=== PATIENT | male | born 1965 | race Two or more races ===

== ENCOUNTER → 2024-05-21 | Outpatient (CLI) | payer MEDICARE, MEDICAID, SELFPAY ==
[2024-05-21 13:37] LABS: Collection Type, Urine Clean Catch
[2024-05-21 13:56] LABS: Basophils % (Auto) 0 % (0-2.5); Eosinophils # (Auto) 0.3 Thou/mm3 (0.0-0.5); Eosinophils % (Auto) 3 % (0-10); Hematocrit 41.4 % (41.0-53.0); Hemoglobin 13.6 g/dL (13.5-16.0); Immature Granulocytes % (Auto) 0 % (0-0); Immature Granulocytes Auto 0.02 Thou/mm3 (0.00-0.00); Lymphocytes # (Auto) 2.1 Thou/mm3 (1.0-4.8); Lymphocytes % (Auto) 23 % (10-50); Mean Corpuscular HGB Conc 32.9 g/dl (31.0-37.0); Mean Corpuscular Hemoglobin 29.7 pg (25.0-35.0); Mean Corpuscular Volume 90 fL (80-100); Monocytes # (Auto) 0.8 Thou/mm3 (0.0-0.8); Monocytes % (Auto) 8 % (0-12); Neutrophils % (Auto) 65 % (37-80); Nucleated Red Blood Cell % 0 /100 WBC (0); Platelet Count 244 Thou/mm3 (140-440); RDW Standard Deviation 43.8 fL (35.1-43.9); Red Blood Count 4.58 Miln/mm3 (4.50-5.90); White Blood Count 9.2 Thou/mm3 (3.8-10.6)
[2024-05-21 14:08] LABS: Amorphous Crystals,Urine Present (Absent); Bacteria,Urine Rare; Bilirubin,Urine Negative (Negative); Blood,Urine 1+ (Negative); Glucose, Urine Negative (Negative); Ketones,Urine Negative (Negative); Leukocyte Esterase,Urine Positive (Negative); Nitrite,Urine Positive (Negative); PH,Urine 8.5 (5.0-7.0); Protein,Urine 2+ (Neg - Trace); RBC,Urine 59 /hpf (0-3); Specific Gravity,Urine 1.016 (1.001-1.035); Squamous Epithelial Cell,Urine 1 /hpf (0-5); Triple Phosphate Crystal,Urine 4+; Urobilinogen,Urine Negative mg/dL (0.0-1.0); WBC,Urine 5 /hpf (0-5)
[2024-05-21 14:35] LABS: Alanine Aminotransferase 34 U/L (10-49); Albumin, Serum 4.4 gm/dL (3.5-5.0); Albumin/Globulin Ratio 1.6 (1.2-2.2); Alkaline Phosphatase 123 U/L (46-116); Anion Gap 10 (7-16); Aspartate Amino Transferase 31 U/L (0-34); BUN/Creatinine Ratio 25 Ratio (12-20); Bilirubin,Total 0.6 mg/dL (0.3-1.2); Blood Urea Nitrogen 20 mg/dL (9-23); Calcium 8.8 mg/dL (8.3-10.6); Calcium (Corrected) 8.8 mg/dL (8.5-10.1); Carbon Dioxide 24.1 mMol/L (20.0-31.0); Chloride 107 mMol/L (98-107); Creatinine (Component) 0.8 mg/dL (0.6-1.3); Globulin 2.8 gm/dL (2.3-3.5); Glucose 77 mg/dL (74-106); Osmolality,Calculated 282 (275-295); Potassium 3.9 mMol/L (3.4-5.1); Sodium 141 mMol/L (136-145); Total Protein 7.2 gm/dL (5.7-8.2); eGFR > 60 See Note
[2024-05-21 14:59] LABS: Clarity,Urine Cloudy (Clear/Hazy); Color,Urine Lt Yellow (Lt Yel-Yel)
[2024-05-21 15:38] LABS: Cardiac Risk Estimate 4.4 RATIO (4.0-6.7); Cholesterol 163 mg/dL (132-200); HDL Cholesterol 37 mg/dL (40-60); LDL Cholesterol,Calculated 102 mg/dL (0-130); Triglycerides 120 mg/dL (30-150)
== END | disposition home or self-care (01) ==
LOC: COPL 13:02
PROVIDERS: PCP Internal Medicine; Referring Provider Internal Medicine; Visit Provider Internal Medicine
DX: I10 Essential (primary) hypertension (principal); E78.5 Hyperlipidemia, unspecified; N39.0 Urinary tract infection, site not specified
CPT/HCPCS: 36415; 80053; 80061; 81001; 85025

== ENCOUNTER 2024-07-03 17:43 | Emergency (ER) | payer MEDICARE, MEDICAID, SELFPAY ==
[2024-07-03 17:55] VITALS: PULSE 76; RESP 18; O2SAT 98
[2024-07-03 17:56] VITALS: BP 145/68; PULSE 83; RESP 18; TEMP 36.5; O2SAT 96; BMI 37.3
--- NOTE | 2024-07-03 18:14 | XR_ITS ---
Examination: CT abdomen with intravenous contrast CT pelvis with intravenous contrast 2-D coronal reconstructions 2-D sagittal reconstructions Date and time of exam:July 03, 2024 at 1946 hrs. Indications: Left lower abdominal pain beginning 2 days ago. CTDI: vol (mGy) 15 DLP: (mGycm) 1147 Technique: Multiple axial sections of the abdomen and pelvis have been obtained. 64 slice high-resolution scanner used. 3 mm axial sections have been obtained, post intravenous injection 60 cc [id number] 2-D sagittal, coronal reconstructions obtained. Low dose protocols were performed. One or more of the following dose reduction techniques were used; automated exposure control, adjustment of the mA and/or KV according to patient size, use of iterative reconstruction technique. Findings: Pneumobilia No pancreatic or adrenal mass Mild bilateral hydronephrosis Urinary diversion with ileostomy No bowel obstruction Liver normal size Thickening of urinary bladder wall Impression: Mild bilateral hydronephrosis with urinary diversion ileostomy Diffuse irregular bladder wall thickening, consider cystitis, urinary bladder mass
--- NOTE | 2024-07-03 18:16 | PD.EDABDPN ---
ED Abdominal Pain RME/HPI General Chief Complaint: Abdominal Pain Stated complaint: ABD PAIN Time seen by provider: 07/03/24 17:55 Arrival date/time: 07/03/24 17:43 RME / HPI RME / HPI narrative: 58-year-old male patient came in for evaluation regarding left lateral abdominal pain. Is been ongoing for the last few days thinks he had a hernia there causing him the pain. Patient is paraplegic from T3 down. He had colostomy and urostomy bag. Patient denies any vomiting denies any fever denies any other complaints. Related Data Home Medications ?Medication ?Instructions ?Recorded ?Confirmed cyclobenzaprine 5 mg tablet 5 mg PO QHS 03/12/22 01/02/24 nitrofurantoin 100 mg PO QDAY 08/06/22 01/02/24 monohydrate/macrocrystals 100 mg capsule (Macrobid) ascorbic acid (vitamin C) 1,000 mg 1 g PO QDAY 01/02/24 01/02/24 tablet flaxseed oil 1,000 mg capsule 1,000 mg PO QDAY 01/02/24 01/02/24 omeprazole 20 mg capsule,delayed 20 mg PO QDAY 01/02/24 01/02/24 release Previous Rx's ?Medication ?Instructions ?Recorded cefuroxime axetil 500 mg tablet 500 mg PO BID #14 tabs 07/03/24 Allergies Allergy/AdvReac Type Severity Reaction Status Date / Time No Known Allergies Allergy Verified 01/02/24 13:12 Review of Systems Review of Systems Narrative Review of Systems: Review of system reviewed and within normal limits except mentioned in HPI ED Exam Narrative Physical exam: VITAL SIGNS: Reviewed. GENERAL APPEARANCE: Alert and interactive, follows commands, no acute distress, HEAD AND FACE: Non-traumatic. ENT: PERRL, pink conjunctivitis, eyelid no trauma, Mucous membrane moist. NECK: Supple, nontender, no nuchal rigidity. CHEST: No tenderness, no crepitus, no paradoxical movement, no retractions. LUNGS: Clear, well ventilated, symmetric, no rales, no wheezing, no ronchi, no stridor, good breath sounds bilaterally. HEART: Regular rate, regular rhythm, no murmur, no gallops. ABDOMEN: Soft, positive bowel sounds, nondistended, no guarding, colostomy intact urostomy intact, tenderness to the left lateral abdomen no masses palpated abdomen is globular RECTAL: Deferred. GENITAL: Deferred. NEUROLOGICAL: Gross motor function intact sensory function intact, Appropriate for age. MUSCULOSKELETAL: low back nontender, full range of motion. EXTREMITIES: No motor movement bilateral lower extremity, full range of motion upper extremities SKIN: Color pink, dry, no rash, no lacerations, no abrasions, no contusions. LYMPHATICS: Deferred. Course Quality Measures none Orders Category Date Time Status CT Screening NOW Care 07/03/24 18:[address] abdomen pelvis w con Stat Exams 07/03/24 18:14 Completed CBC Stat Lab 07/03/24 18:56 Completed Comprehensive Metabolic Panel Stat Lab 07/03/24 18:56 Completed Lipase Stat Lab 07/03/24 18:56 Completed Prothrombin Time with INR Stat Lab 07/03/24 18:56 Completed UA, C/S IF [Urinalysis, C/S if Indicated] Stat Lab 07/03/24 18:56 Completed Urine Culture Stat Lab 07/03/24 18:56 Received Ketorolac Inj [Toradol Inj] Med 07/03/24 18:14 Discontinued 30 mg IVP X1 ONE cefTRIAXone [Rocephin] 1,000 mg Med 07/03/24 21:42 Discontinued SODIUM CHLORIDE 0.9% (Popper) [Ns 0.9% (P)] 50 ml IV X1 Vital Signs Vital signs: Vital Signs Temperature 97.7 F 07/03/24 17:56 Pulse Rate 83 07/03/24 17:56 Respiratory Rate 18 07/03/24 17:56 Blood Pressure 145/68 H 07/03/24 17:56 Pulse Oximetry (%) 96 07/03/24 17:56 Oxygen Delivery Method Room Air 07/03/24 17:56 Abdominal Pain MDM MDM Narrative MDM Narrative:: 58-year-old male patient came in for evaluation regarding left lateral abdominal pain. Is been ongoing for the last few days thinks he had a hernia there causing him the pain. Patient is paraplegic from T3 down. He had colostomy and urostomy bag. Patient denies any vomiting denies any fever denies any other complaints. Laboratory workup came back unremarkable except for UTI. CT scan of the abdomen and pelvis showed Mild bilateral hydronephrosis with urinary diversion ileostomy Diffuse irregular bladder wall thickening, consider cystitis, urinary bladder mass Patient received IV ceftriaxone Patient appears nontoxic and hemodynamically stable. Patient discharged home and instructed to follow-up with primary care provider in 24 to 48 hours. Instructed to return to the emergency department immediately if worsening of symptoms Patient data External records reviewed:: None Clinical information provided by:: none Social determinants that could affect healthcare access:: none Patient has the following chronic illnesses:: Paraplegia How is presenting disease/condition affected by chronic disease/condition?: exacerbated by Evaluation data The following diagnostics were reviewed and interpreted by me:: lab results and radiology exam(s) Lab and/or radiology exams considered but not ordered:: None Interpretation Summary: See results in MDM Medications / Prescriptions Medications or Prescriptions considered but not ordered:: None Medication administrations:: Medication Administration History Discontinued Medications Ceftriaxone Sodium 1,000 mg/ (Sodium Chloride) 50 mls @ 100 mls/hr IV X1 ONE Stop: 07/03/24 22:11 Last Admin: 07/03/24 22:03 Dose: 100 mls/hr Documented By: CCT Ketorolac Tromethamine (Ketorolac Inj 30 Mg/Ml Vial) 30 mg IVP X1 ONE Stop: 07/03/24 18:15 Last Admin: 07/03/24 18:46 Dose: 30 mg Documented By: VG Ceftriaxone and Toradol Consultations Consultation(s) initiated? (list below): No Consultation #1 (Physician, Specialty, Details): Stable Diagnosis Differential diagnosis abdominal pain: abdominal pain and other (UTI, paraplegia) Most likely diagnosis given after review of the tests above:: UTI, paraplegia Admission Indicated Admission indicated?: not indicated Admission Request Was there a request for admission?: No Disposition Plan Disposition Plan: Discharge Discharge Attestation Discharge Attestation: The patient and all family members were given an opportunity to ask questions and understood the discharge instructions. Discharge instructions specifically effects, indications for sooner follow up or return to the emergency department, and the expected course of current diagnosis. Patient condition: Stable Discharge Plan Plan Patient Disposition: HOME (Self Care) Disposition Comment: Stable Prescriptions/Referrals Prescriptions/Med Rec: New cefuroxime axetil 500 mg tablet 500 mg PO BID Qty: 14 0RF No Action omeprazole 20 mg capsule,delayed release(DR/EC) 20 mg PO QDAY flaxseed oil 1,000 mg capsule 1,000 mg PO QDAY Rx Instructions: administer with a meal ascorbic acid (vitamin C) 1,000 mg tablet 1 g PO QDAY cyclobenzaprine 5 mg tablet 5 mg PO QHS nitrofurantoin monohyd/m-cryst [Macrobid] 100 mg capsule 100 mg PO QDAY Rx Instructions: must administer with a meal/food Referrals: Tere York MD [Primary Care Provider] - In 1 week Problem List Clinical Impression: Abdominal pain, UTI (urinary tract infection), Paraplegia Patient/Caregiver Discharge Instructions Discharge Activity: activity as tolerated Education Materials: Urinary Tract Infections in Men Additional Instructions: Thank you for the opportunity for serving you today. You are stable for discharged . You are advised to: Follow-up with your PCP in 1 to 2 days Return to ED for worsening of symptoms Increase oral fluids Take medication as prescribed Print Language: Beninese Stand Alone Forms: Veronica Award Info., Patient Portal Info Letter PA/SCHOOL BASED THERAPIST Supervising Physician CHRISTIANA/SCHOOL BASED THERAPIST Supervising Physician: MD Shad
[2024-07-03 18:39] VITALS: BP 101/53; PULSE 79; RESP 18; TEMP 36.4; O2SAT 95
[2024-07-03] MEDS: KETOROLAC INJ 30 MG/ML VIAL IVP (18:46)
[2024-07-03 19:04] LABS: Collection Type, Urine Catheter; RBC,Urine 0 /hpf (0-3); Squamous Epithelial Cell,Urine 0 /hpf (0-5)
[2024-07-03 19:08] LABS: Basophils # (Auto) 0.1 Thou/mm3 (0.0-0.2); Basophils % (Auto) 1 % (0-2.5); Eosinophils # (Auto) 0.3 Thou/mm3 (0.0-0.5); Eosinophils % (Auto) 3 % (0-10); Hematocrit 38.9 % (41.0-53.0); Immature Granulocytes % (Auto) 0 % (0-0); Immature Granulocytes Auto 0.03 Thou/mm3 (0.00-0.00); Lymphocytes # (Auto) 2.3 Thou/mm3 (1.0-4.8); Lymphocytes % (Auto) 24 % (10-50); Mean Corpuscular HGB Conc 33.4 g/dl (31.0-37.0); Mean Corpuscular Hemoglobin 29.5 pg (25.0-35.0); Mean Corpuscular Volume 88 fL (80-100); Monocytes # (Auto) 0.8 Thou/mm3 (0.0-0.8); Monocytes % (Auto) 8 % (0-12); Neutrophils # (Auto) 6.3 Thou/mm3 (1.8-7.7); Neutrophils % (Auto) 64 % (37-80); Nucleated Red Blood Cell % 0 /100 WBC (0); Platelet Count 249 Thou/mm3 (140-440); RDW Standard Deviation 42.5 fL (35.1-43.9); White Blood Count 9.9 Thou/mm3 (3.8-10.6)
[2024-07-03 19:15] LABS: Bilirubin,Urine Negative (Negative); Blood,Urine Negative (Negative); Clarity,Urine Turbid (Clear/Hazy); Color,Urine Yellow (Lt Yel-Yel); Glucose, Urine Negative (Negative); Ketones,Urine Negative (Negative); Leukocyte Esterase,Urine Positive (Negative); Nitrite,Urine Positive (Negative); Protein,Urine 1+ (Neg - Trace); Urobilinogen,Urine Negative mg/dL (0.0-1.0); WBC,Urine 70 /hpf (0-5)
[2024-07-03 19:20] LABS: Culture Indicated,Urine Yes
[2024-07-03 19:23] LABS: Prothrombin Time 10.6 Seconds (9.0-12.2)
[2024-07-03 19:26] LABS: Alanine Aminotransferase 36 U/L (10-49); Albumin/Globulin Ratio 1.6 (1.2-2.2); Alkaline Phosphatase 117 U/L (46-116); Anion Gap 10 (7-16); Aspartate Amino Transferase 35 U/L (0-34); BUN/Creatinine Ratio 24 Ratio (12-20); Bilirubin,Total 0.3 mg/dL (0.3-1.2); Blood Urea Nitrogen 22 mg/dL (9-23); Calcium 9.3 mg/dL (8.3-10.6); Calcium (Corrected) 9.3 mg/dL (8.5-10.1); Carbon Dioxide 23.1 mMol/L (20.0-31.0); Chloride 109 mMol/L (98-107); Creatinine (Component) 0.9 mg/dL (0.6-1.3); Estimated Creatinine Clearance 117.9 mL/min (>60); Globulin 2.5 gm/dL (2.3-3.5); Glucose 106 mg/dL (74-106); Lipase 36 U/L (12-53); Osmolality,Calculated 286 (275-295); Potassium 4.5 mMol/L (3.4-5.1); Sodium 142 mMol/L (136-145); Total Protein 6.5 gm/dL (5.7-8.2); eGFR > 60 See Note
--- NOTE | 2024-07-03 21:36 | PRELIM_ITS ---
CT scan of the abdomen and pelvis with intravenous contrast (axial sections with sagittal and coronal reformats) July 03, 2024 at 1946 hours Clinical History: Left lower quadrant pain Comparison: CT Abdomen & Pelvis 05/09/2019 Findings: Bibasilar atelectasis is seen. Again noted is pneumobilia, likely related to patulous ampulla. The gallbladder is surgically absent. Again noted is mild bilateral hydronephrosis. No evidence of renal/ureteric calculus. Bilateral renal hypodensities, the largest measuring 1.3 cm and represent simple cysts, otherwise are too small to characterize. Again noted is evidence of urinary diversion with an ileal conduit in the right lower quadrant, new since the prior examination. The urinary bladder is not distended with diffuse irregular wall thickening. The pancreas, spleen and adrenals are unremarkable. Small bowel anastomotic sutures are seen in the right mid abdomen. An ileostomy is noted again in the right mid abdomen with a parastomal hernia containing nondilated small bowel loops and cecum. No evidence of bowel obstruction. Colostomy is seen in the left mid abdomen with a rectosigmoid stump. There is no mesenteric or retroperitoneal adenopathy. There is no free fluid or free air. There are small fat-containing bilateral inguinal hernias. Degenerative changes are identified in the spine. Impression: 1. Unchanged urinary diversion with ileal conduit and ileostomy in the right mid abdomen and colostomy in the left lower quadrant. 2. Stable mild bilateral hydronephrosis. No evidence of renal/ureteric calculus. 3. Diffuse irregular wall thickening of the urinary bladder suggestive of cystitis or mass. Recommend clinical correlation. 4. Other findings as described above. Report Electronically Signed By: Beba Robb 07/03/2024 9:35:35 PM [EST]
[2024-07-03 21:45] VITALS: BP 141/75; PULSE 59; RESP 18; TEMP 36.4; O2SAT 96
[2024-07-03] MEDS: cefTRIAXone 1,000 MG in SODIUM CHLORIDE 0.9% (Popper) 50 ML 100 MG IV (22:03)
== END 2024-07-03 22:48 | disposition home or self-care (01) ==
PROVIDERS: Nurse Practitioner Family; Emergency Provider Family Medicine; PCP Internal Medicine
DX: N39.0 Urinary tract infection, site not specified (principal); G82.20 Paraplegia, unspecified; Z93.3 Colostomy status
CPT/HCPCS: 36415; 74177; 80053; 81001; 83690; 85025; 85610; 87077; 87086; 87186; 96365; 96375; 99285; A4649; J0696; J1885; J7050; Q9967

== ENCOUNTER → 2024-11-22 | Outpatient (CLI) | payer MEDICARE, MEDICAID, SELFPAY ==
[2024-11-22 12:18] LABS: Basophils # (Auto) 0.1 Thou/mm3 (0.0-0.2); Basophils % (Auto) 1 % (0-2.5); Eosinophils # (Auto) 0.3 Thou/mm3 (0.0-0.5); Eosinophils % (Auto) 3 % (0-10); Hematocrit 41.5 % (41.0-53.0); Hemoglobin 13.7 g/dL (13.5-16.0); Immature Granulocytes Auto 0.02 Thou/mm3 (0.00-0.00); Lymphocytes # (Auto) 2.0 Thou/mm3 (1.0-4.8); Lymphocytes % (Auto) 24 % (10-50); Mean Corpuscular HGB Conc 33.0 g/dl (31.0-37.0); Mean Corpuscular Hemoglobin 30.1 pg (25.0-35.0); Mean Corpuscular Volume 91 fL (80-100); Monocytes # (Auto) 0.8 Thou/mm3 (0.0-0.8); Monocytes % (Auto) 9 % (0-12); Neutrophils # (Auto) 5.3 Thou/mm3 (1.8-7.7); Neutrophils % (Auto) 63 % (37-80); Nucleated Red Blood Cell # 0.00 Thou/mm3 (0.00-0.00); Nucleated Red Blood Cell % 0 /100 WBC (0); Platelet Count 253 Thou/mm3 (140-440); RDW Standard Deviation 42.5 fL (35.1-43.9); Red Blood Count 4.55 Miln/mm3 (4.50-5.90); White Blood Count 8.4 Thou/mm3 (3.8-10.6)
[2024-11-22 12:23] LABS: Alanine Aminotransferase 52 U/L (10-49); Albumin, Serum 4.3 gm/dL (3.5-5.0); Albumin/Globulin Ratio 1.7 (1.2-2.2); Alkaline Phosphatase 132 U/L (46-116); Anion Gap 10 (7-16); Aspartate Amino Transferase 34 U/L (0-34); BUN/Creatinine Ratio 11 Ratio (12-20); Bilirubin,Total 0.4 mg/dL (0.3-1.2); Blood Urea Nitrogen 12 mg/dL (9-23); Calcium 8.9 mg/dL (8.3-10.6); Calcium (Corrected) 8.9 mg/dL (8.5-10.1); Carbon Dioxide 24.1 mMol/L (20.0-31.0); Cardiac Risk Estimate 4.6 RATIO (4.0-6.7); Chloride 106 mMol/L (98-107); Cholesterol 157 mg/dL (132-200); Creatinine (Component) 1.1 mg/dL (0.6-1.3); Globulin 2.6 gm/dL (2.3-3.5); Glucose 93 mg/dL (74-106); HDL Cholesterol 34 mg/dL (40-60); LDL Cholesterol,Calculated 97 mg/dL (0-130); Osmolality,Calculated 279 (275-295); Potassium 4.9 mMol/L (3.4-5.1); Sodium 140 mMol/L (136-145); Thyroid Stimulating Hormone 2.57 uIU/mL (0.55-4.78); Total Protein 6.9 gm/dL (5.7-8.2); Triglycerides 130 mg/dL (30-150); Uric Acid 4.5 mg/dL (3.7-9.2); eGFR > 60 See Note
[2024-11-22 12:42] LABS: Prostate Specific Antigen 0.59 ng/mL (0-4.00)
[2024-11-22 12:48] LABS: Vitamin B12 693 pg/mL (211-911); Vitamin D 25 Hydroxy Total 53.8 ng/mL (7.3-40.2)
[2024-11-22 13:37] LABS: Glucose Estimated Average 108 mg/dL (80-131); Hemoglobin A1C 5.4 % Hgb (4.8-6.0)
== END | disposition home or self-care (01) ==
LOC: COPL 11:24
PROVIDERS: PCP Internal Medicine; Referring Provider Internal Medicine; Visit Provider Internal Medicine
DX: Z00.00 Encounter for general adult medical examination without abnormal findings (principal); E78.5 Hyperlipidemia, unspecified
CPT/HCPCS: 36415; 80053; 80061; 82306; 82607; 83036; 84153; 84443; 84550; 85025